=== PATIENT | male | born 1950 | race Caucasian/White ===

== ENCOUNTER 2018-08-27 23:43 | Inpatient (IN) | payer MEDICARE ==
[~2018-08-27] VITALS: Ht 182.9 cm; Wt 84.4 kg
--- NOTE | 2018-08-28 00:03 | PHYS DOC ---
Past Medical History Past Medical History: CAD, Diabetes-Type II Additional Past Medical Histor: neuropathy Additional Past Surgical Histo: pancreas surgery, bilateral fibular had amputations Smoking: Quit Greater Than 1 Year Adult General Chief Complaint Chief Complaint: MECHANICAL FALL HPI HPI Patient is a 68-year-old male who presents to the emergency department for evaluation. He states he awakened from sleep in the middle of the night, and attempted to go to the bathroom but walked into the wrong doorway and fell down about [address] stairs. He was able to crawl back up the stairs, and complains of pain in his left ankle and foot primarily. He also has some mild neck pain and is uncertain if he hit his head. He also has some abrasions on his left flank and some left flank pain. He has not had any loss of consciousness. He has not had any vomiting. He has some superficial abrasions on his legs bilaterally and is uncertain of his last tetanus. There are no alleviating or exacerbating factors to his symptoms, although movement and palpation of the affected area seems to worsen his pain. Review of Systems Review of Systems Constitutional: Denies fever or chills [] Eyes: Denies change in visual acuity, redness, or eye pain [] HENT: Denies nasal congestion or sore throat [] Respiratory: Denies cough or shortness of breath [] Cardiovascular: The patient denies any shortness of breath, chest pain, palpitations, or orthopnea [] GI: Denies abdominal pain, nausea, vomiting, bloody stools or diarrhea [] : Denies dysuria or hematuria [] Musculoskeletal: Denies back pain or joint pain, except as noted in the history of present illness [] Integument: Denies rash or skin lesions [] Neurologic: Denies headache, focal weakness or sensory changes [] Endocrine: Denies polyuria or polydipsia [] All other systems were reviewed and found to be within normal limits, except as documented in this note. Current Medications Current Medications Current Medications Medications (Trade) Dose Ordered Sig/Bassam Start Time Stop Time Status Last Admin Dose Admin Diphtheria/ Tetanus/Acell Pertussis (Boostrix) 0.5 ml ONCE ONCE 08/28/18 00:30 08/28/18 00:31 DC 08/28/18 00:43 0.5 ML Fentanyl Citrate (Fentanyl 2ml Vial) 50 mcg 1X ONCE 08/28/18:30 08/28/18 00:31 DC 08/28/18 00:43 50 MCG Info (CONTRAST GIVEN -- Rx MONITORING) 1 each PRN DAILY PRN 08/28/18 01:15 08/30/18 01:14 Iohexol (Omnipaque 300 Mg/ml) 75 ml 1X ONCE 08/28/18 01:30 08/28/18 01:31 DC 08/28/18 01:57 75 ML Morphine Sulfate (Morphine Sulfate) 4 mg 1X ONCE 08/28/18 03:30 08/28/18 03:31 08/28/18 02:55 4 MG Sodium Chloride 1,000 ml @ 100 mls/hr Q10H 08/28/18 00:30 08/28/18 10:29 08/28/18 00:43 100 MLS/HR Allergies Allergies Allergies Coded Allergies Type Severity Reaction Last Updated Verified No Known Drug Allergies 08/27/18 No Physical Exam Physical Exam PHYSICAL EXAM: CONSTITUTIONAL: Well developed, well nourished HEAD: normocephalic, atraumatic EENT: PERRL, EOMI. Conjunctivae normal color, sclerae non-icteric; moist mucous membranes. NECK: There is mild tenderness to palpation diffusely in the cervical spine. EMS applied cervical collar remains in place. LUNGS: Lungs CTA, breathing even and unlabored. Normal air movement. HEART: Regular rate and rhythm, no murmur CHEST: No deformity; non-tender ABDOMEN: The abdomen is soft, there is mild tenderness to palpation of the left lower abdomen, with a superficial stab abrasion on the left flank. The upper abdomen, including both upper quadrants or nontender. The remainder the abdomen is soft and non-tender, no masses or bruits. There is no rebound, or guarding. EXTREM: There is soft tissue swelling over the lateral malleolus of the left ankle, there is mild tenderness to palpation of the left foot. There are superficial abrasions on the shins bilaterally. There is normal range of motion of the knees and hips bilaterally without any definite focal bony tenderness to palpation of this area. Remainder the extremities are atraumatic. SKIN: No rash; no diaphoresis NEURO: Alert; normal speech and cognition; CN's grossly intact; strength grossly intact without focal deficit. BACK: No CVA TTP.There is no bony tenderness to palpation of the thoracic or lumbar spine. Current Patient Data Vital Signs Vital Signs Date Time Temp Pulse Resp B/P (MAP) Pulse Ox O2 Delivery O2 Flow Rate FiO2 08/27/18 23:58 97.8 82 18 149/85 (106) 97 Room Air 97.8 Lab Values Laboratory Tests Test 08/27/18 23:54 White Blood Count 6.4 x10^3/uL (4.0-11.0) Red Blood Count 4.45 x10^6/uL (4.30-5.70) Hemoglobin 13.2 g/dL (13.0-17.5) Hematocrit 37.9 % (39.0-53.0) L Mean Corpuscular Volume 85 fL (79-100) Mean Corpuscular Hemoglobin 30 pg (25-35) Mean Corpuscular Hemoglobin Concent 35 g/dL (31-37) Red Cell Distribution Width 13.5 % (11.5-14.5) Platelet Count 201 x10^3/uL (140-400) Neutrophils (%) (Auto) 64 % (31-73) Lymphocytes (%) (Auto) 25 % (24-48) Monocytes (%) (Auto) 7 % (0-9) Eosinophils (%) (Auto) 3 % (0-3) Basophils (%) (Auto) 1 % (0-3) Neutrophils # (Auto) 4.1 x10^3uL (1.8-7.7) Lymphocytes # (Auto) 1.6 x10^3/uL (1.0-4.8) Monocytes # (Auto) 0.4 x10^3/uL (0.0-1.1) Eosinophils # (Auto) 0.2 x10^3/uL (0.0-0.7) Basophils # (Auto) 0.0 x10^3/uL (0.0-0.2) Prothrombin Time 13.0 SEC (11.7-14.0) Prothrombin Time INR 1.0 (0.8-1.1) Sodium Level 137 mmol/L (136-145) Potassium Level 4.1 mmol/L (3.5-5.1) Chloride Level 101 mmol/L (98-107) Carbon Dioxide Level 29 mmol/L (21-32) Anion Gap 7 (6-14) Blood Urea Nitrogen 14 mg/dL (8-26) Creatinine 1.1 mg/dL (0.7-1.3) Estimated GFR (Cockcroft-Gault) 66.8 BUN/Creatinine Ratio 13 (6-20) Glucose Level 336 mg/dL (70-99) H Calcium Level 8.9 mg/dL (8.5-10.1) Total Bilirubin 0.3 mg/dL (0.2-1.0) Aspartate Amino Transferase (AST) 21 U/L (15-37) Alanine Aminotransferase (ALT) 29 U/L (16-63) Alkaline Phosphatase 121 U/L (46-116) H Total Protein 6.2 g/dL (6.4-8.2) L Albumin 3.2 g/dL (3.4-5.0) L Albumin/Globulin Ratio 1.1 (1.0-1.7) Lipase 50 U/L (73-393) L Laboratory Tests 08/27/18 23:54 Laboratory Tests 08/27/18 23:54 EKG EKG [Normal sinus rhythm a rate of 80 beats for minute, normal axis, normal intervals. There are no acute ischemic ST/T changes.] Radiology/Procedures Radiology/Procedures [PROCEDURE: CT ABD PELV W/ IV CONTRST ONLY INDICATION: pt fell down stairs; body pain; Omni 300, 75ml COMPARISON: None. TECHNIQUE: Axial CT images obtained through the abdomen and pelvis with contrast. One or more of the following individualized dose reduction techniques were utilized for this examination: 1. Automated exposure control; 2. Adjustment of the mA and/or kV according to patient size; 3. Use of iterative reconstruction technique. FINDINGS: Mild dependent opacity at left greater than right lung base. Severe atherosclerosis. Surgical clips left groin. Mild haziness to a portion the mesenteric fat. The pancreas has a somewhat atrophic appearance with multiple calcifications seen within the uncinate process. No intrahepatic bile duct dilation or perihepatic hemorrhage. No perisplenic hemorrhage. No left-sided hydronephrosis or perirenal hemorrhage. Urinary bladder somewhat distended at time of exam. No right-sided hydronephrosis or perirenal hemorrhage. Duplicated right collecting system and ureters. Moderate amount of stool within the rectal region. Moderate stool seen throughout the remainder of the colon. No periappendiceal inflammation. Small fat-containing umbilical hernia. No dilated loops of bowel to suggest obstruction. Right lateral 10th rib fracture. Anterior spinal fusion changes at L4-S1 with plate within the region. Multilevel degenerative changes spine. This contributes to multilevel central canal and neural foraminal stenosis. IMPRESSION: 1. No definite solid organ or vascular injury. 2. Right 10th rib fracture with an acute appearance. 3. There are some calcifications within the uncinate process of the pancreas. Can be seen with causes such as chronic pancreatitis. 4. The urinary bladder is distended at the time of exam. Would correlate with urinary function.] PROCEDURE: CT HEAD AND CERVICAL SPINE WO INDICATION: PT FELL DOWN STAIRS; HEAD/NECK PAIN COMPARISON: None. TECHNIQUE: Axial CT images obtained through the head and cervical spine without intravenous contrast. Coronal and sagittal reformats processed of cervical spine. One or more of the following individualized dose reduction techniques were utilized for this examination: 1. Automated exposure control; 2. Adjustment of the mA and/or kV according to patient size; 3. Use of iterative reconstruction technique. FINDINGS: Head: No intracranial hemorrhage. No midline shift. Basal cisterns patents. Ventricles and sulci are mildly prominent. Scattered foci of low-attenuation white matter. No acute osseous abnormality. There is some fluid in the maxillary sinuses as well as suspected small frontal scalp hematoma. Cervical: Only C1-C6 is visualized on this exam with C7 outside of the field of view. Multilevel degenerative changes throughout the cervical spine with disc protrusions as well as osteophyte formation, uncovertebral and facet hypertrophy with multilevel central canal and neural foraminal stenosis. A definite acute fracture line is not seen. IMPRESSION: 1. No acute intracranial hemorrhage. 2. Scattered foci of low-attenuation white matter. Nonspecific but can be seen with chronic small vessel ischemic disease. 3. Partial opacification of the maxillary sinuses with small fluid and mucosal thickening. 4. Mild angulation of the right zygomatic arch. A fracture of unknown age is possible given this finding. Would correlate with point tenderness in the region. 5. No definite acute fracture or dislocation of the cervical spine from C1 through C6. C7 and the upper thoracic spine is outside of the field of view. 6. Calcific atherosclerosis. 7. Multilevel degenerative changes with disc protrusions and osteophyte formation as well as uncovertebral and facet hypertrophy with central canal neural foraminal stenosis at multiple levels. PROCEDURE: ANKLE LEFT 3V INDICATION: pain after falling down stairs; ankle pain COMPARISON: None. IMPRESSION: Left ankle: 3 views obtained. Small ossific density adjacent to the medial malleolus. This appears well-corticated therefore could be secondary to an old fracture or ossicle. Ankle joint effusion is identified. Severe calcific atherosclerosis. Anterior to the tibiotalar articulation there is a 2 mm calcific density structure identified. Could be a calcification within the soft tissues or related to degenerative changes with a small loose body in the area but a tiny fracture fragment is not excluded given this finding. Soft tissue swelling overlying the lateral malleolus. There is also suspected ossific density seen adjacent to the lateral aspect of the distal tibia which could be secondary to a small fracture fragment of unknown age. Left foot: 3 views obtained. Lucency at the midpoint of the medial ossicle of the first digit near the metatarsal head. There is some swelling overlying the first metatarsophalangeal joint. The most common cause for this appearance would be bipartite ossicle but given the overlying swelling if the patient has point tenderness a nondisplaced fracture is possible. Ossific density seen adjacent to the navicular but this is most likely secondary to a ossicle given the location. Degenerative changes of the midfoot. Overlap somewhat limits evaluation of midfoot. Multiple lucencies extending through the mid to anterior portion of the calcaneus concerning for mildly displaced comminuted acute appearing fracture. Small ossific density identified adjacent to the cuboid but given the appearance of morphology would favor ossicle. ER physician preliminary L hip x-ray interpretation: No acute fracture or other abnormality. Course & Med Decision Making Course & Med Decision Making Pertinent Labs and Imaging studies reviewed. (See chart for details) [3:15 AM: The patient's condition remained stable. CT does not adequately image his cervical spine and have requested the technologist to obtain additional images. Additionally, given the patient's foot injuries, CT of his foot for better delineation of his calcaneal fracture is warranted. The patient does not think he is be able to bear weight even with the use of crutches. He'll be admitted to the hospital for further evaluation and orthopedic consultation. C- collar will remain in place, and will need to be removed by the hospitalist after additional CT images have been obtained. SPLINT APPLICATION NOTE: Posterior short leg splint was placed by ER nurse, and inspected by me post lifting. PMS intact. Dragon Disclaimer Dragon Disclaimer This electronic medical record was generated, in whole or in part, using a voice recognition dictation system. Departure Departure Impression: Primary Impression: Foot fracture Additional Impressions: Accidental fall Abrasions of multiple sites Rib fracture Disposition: ADMITTED INPATIENT Admitting Physician: Luiz Castorena Condition: STABLE Problem Qualifiers ADRI MCGOVERN MD Aug 28, 2018 00:03
[2018-08-28 00:04] LABS: BASO % 1 % (0-3); EOS # 0.2 x10^3/uL (0.0-0.7); EOS % 3 % (0-3); HEMATOCRIT 37.9 % (39.0-53.0); HEMOGLOBIN 13.2 g/dL (13.0-17.5); LYMPH # 1.6 x10^3/uL (1.0-4.8); LYMPH % 25 % (24-48); MEAN CORPUSCULAR HEMOGLOBIN 30 pg (25-35); MEAN CORPUSCULAR HGB CONC 35 g/dL (31-37); MEAN CORPUSCULAR VOLUME 85 fL (79-100); MONO # 0.4 x10^3/uL (0.0-1.1); MONO % 7 % (0-9); NEUT # 4.1 x10^3uL (1.8-7.7); NEUT % 64 % (31-73); PLATELET COUNT 201 x10^3/uL (140-400); RED BLOOD COUNT 4.45 x10^6/uL (4.30-5.70); RED CELL DISTRIBUTION WIDTH 13.5 % (11.5-14.5); WHITE BLOOD COUNT 6.4 x10^3/uL (4.0-11.0)
[2018-08-28 00:11] LABS: CALCIUM 8.9 mg/dL (8.5-10.1); CREATININE 1.1 mg/dL (0.7-1.3); GFR 66.8; POTASSIUM 4.1 mmol/L (3.5-5.1)
[2018-08-28 00:16] LABS: ALBUMIN 3.2 g/dL (3.4-5.0); ALBUMIN/GLOBULIN RATIO 1.1 (1.0-1.7); TOTAL BILIRUBIN 0.3 mg/dL (0.2-1.0); TOTAL PROTEIN 6.2 g/dL (6.4-8.2)
[2018-08-28] MEDS ORDERED: DIPHTH,PERTUSS(ACELL),TET TOX 0.5 ML DISP.SYRIN. VAX IM ONE (00:30)
[2018-08-28] MEDS ORDERED: IV NORMAL SALINE 1000ML BAG 1,000 ML IV SCH (00:30)
[2018-08-28] MEDS ORDERED: fentaNYL PF VIAL 100 MCG/2 ML VIAL IV ONE (00:30)
[2018-08-28] MEDS ORDERED: CONTRAST GIVEN. MC PRN (01:15)
[2018-08-28] MEDS ORDERED: IOHEXOL 300 MG/ML 100ML VIAL. IV ONE (01:30)
--- NOTE | 2018-08-28 02:19 | RAD ---
INDICATION: pt fell down stairs; body pain; Omni 300, 75ml COMPARISON: None. TECHNIQUE: Axial CT images obtained through the abdomen and pelvis with contrast. One or more of the following individualized dose reduction techniques were utilized for this examination: 1. Automated exposure control; 2. Adjustment of the mA and/or kV according to patient size; 3. Use of iterative reconstruction technique. FINDINGS: Mild dependent opacity at left greater than right lung base. Severe atherosclerosis. Surgical clips left groin. Mild haziness to a portion the mesenteric fat. The pancreas has a somewhat atrophic appearance with multiple calcifications seen within the uncinate process. No intrahepatic bile duct dilation or perihepatic hemorrhage. No perisplenic hemorrhage. No left-sided hydronephrosis or perirenal hemorrhage. Urinary bladder somewhat distended at time of exam. No right-sided hydronephrosis or perirenal hemorrhage. Duplicated right collecting system and ureters. Moderate amount of stool within the rectal region. Moderate stool seen throughout the remainder of the colon. No periappendiceal inflammation. Small fat-containing umbilical hernia. No dilated loops of bowel to suggest obstruction. Right lateral 10th rib fracture. Anterior spinal fusion changes at L4-S1 with plate within the region. Multilevel degenerative changes spine. This contributes to multilevel central canal and neural foraminal stenosis. IMPRESSION: 1. No definite solid organ or vascular injury. 2. Right 10th rib fracture with an acute appearance. 3. There are some calcifications within the uncinate process of the pancreas. Can be seen with causes such as chronic pancreatitis. 4. The urinary bladder is distended at the time of exam. Would correlate with urinary function. Electronically signed by: Jamie Ortega MD (08/28/2018 2:15 AM) [id number]
--- NOTE | 2018-08-28 02:30 | RAD ---
INDICATION: PT FELL DOWN STAIRS; HEAD/NECK PAIN COMPARISON: None. TECHNIQUE: Axial CT images obtained through the head and cervical spine without intravenous contrast. Coronal and sagittal reformats processed of cervical spine. One or more of the following individualized dose reduction techniques were utilized for this examination: 1. Automated exposure control; 2. Adjustment of the mA and/or kV according to patient size; 3. Use of iterative reconstruction technique. FINDINGS: Head: No intracranial hemorrhage. No midline shift. Basal cisterns patents. Ventricles and sulci are mildly prominent. Scattered foci of low-attenuation white matter. No acute osseous abnormality. There is some fluid in the maxillary sinuses as well as suspected small frontal scalp hematoma. Cervical: Only C1-C6 is visualized on this exam with C7 outside of the field of view. Multilevel degenerative changes throughout the cervical spine with disc protrusions as well as osteophyte formation, uncovertebral and facet hypertrophy with multilevel central canal and neural foraminal stenosis. A definite acute fracture line is not seen. IMPRESSION: 1. No acute intracranial hemorrhage. 2. Scattered foci of low-attenuation white matter. Nonspecific but can be seen with chronic small vessel ischemic disease. 3. Partial opacification of the maxillary sinuses with small fluid and mucosal thickening. 4. Mild angulation of the right zygomatic arch. A fracture of unknown age is possible given this finding. Would correlate with point tenderness in the region. 5. No definite acute fracture or dislocation of the cervical spine from C1 through C6. C7 and the upper thoracic spine is outside of the field of view. 6. Calcific atherosclerosis. 7. Multilevel degenerative changes with disc protrusions and osteophyte formation as well as uncovertebral and facet hypertrophy with central canal neural foraminal stenosis at multiple levels. Electronically signed by: Jamie Ortega MD (08/28/2018 2:27 AM) [facility]
--- NOTE | 2018-08-28 02:38 | RAD ---
INDICATION: pain after falling down stairs; ankle pain COMPARISON: None. IMPRESSION: Left ankle: 3 views obtained. Small ossific density adjacent to the medial malleolus. This appears well-corticated therefore could be secondary to an old fracture or ossicle. Ankle joint effusion is identified. Severe calcific atherosclerosis. Anterior to the tibiotalar articulation there is a 2 mm calcific density structure identified. Could be a calcification within the soft tissues or related to degenerative changes with a small loose body in the area but a tiny fracture fragment is not excluded given this finding. Soft tissue swelling overlying the lateral malleolus. There is also suspected ossific density seen adjacent to the lateral aspect of the distal tibia which could be secondary to a small fracture fragment of unknown age. Left foot: 3 views obtained. Lucency at the midpoint of the medial ossicle of the first digit near the metatarsal head. There is some swelling overlying the first metatarsophalangeal joint. The most common cause for this appearance would be bipartite ossicle but given the overlying swelling if the patient has point tenderness a nondisplaced fracture is possible. Ossific density seen adjacent to the navicular but this is most likely secondary to a ossicle given the location. Degenerative changes of the midfoot. Overlap somewhat limits evaluation of midfoot. Multiple lucencies extending through the mid to anterior portion of the calcaneus concerning for mildly displaced comminuted acute appearing fracture. Small ossific density identified adjacent to the cuboid but given the appearance of morphology would favor ossicle. Electronically signed by: Jamie Ortega MD (08/28/2018 2:35 AM) [id number]
[2018-08-28] MEDS ORDERED: ONDANSETRON PF 4 MG/2 ML VIAL. IV PRN (03:30)
[2018-08-28] MEDS ORDERED: MORPHINE SULFATE 4 MG/ML VIAL. IV ONE (03:30)
[2018-08-28 04:05] VITALS: BP 161/88
[2018-08-28] MEDS: MORPHINE SULFATE 4 MG/ML VIAL. IV PRN ×6 (04:42→21:13)
--- NOTE | 2018-08-28 05:23 | RAD ---
INDICATION: fx foot COMPARISON: Plain film from earlier same day TECHNIQUE: Axial CT images obtained through the left foot without contrast. One or more of the following individualized dose reduction techniques were utilized for this examination: 1. Automated exposure control; 2. Adjustment of the mA and/or kV according to patient size; 3. Use of iterative reconstruction technique. FINDINGS: Comminuted and displaced fracture is again identified of the calcaneus which does extend intra-articularly including to the subtalar joint. Severe calcific atherosclerosis. Osseous fragments are again seen adjacent to the tibiotalar joint medially. These appear well-corticated therefore its possible that these are secondary to old fracture or degenerative changes. Osseous excrescence off of the distal aspect of the fibula. Induration of the fat with edema and suspected blood within the soft tissues. This involves both the foot and ankle. Ossific density adjacent to the navicular likely ossicle. Probable ossicle adjacent to the cuboid. There are some degenerative changes the midfoot with osteophyte formation. Hypertrophic changes with osseous excrescence off of the medial cuneiform. Linear lucency seen at medial cuneiform distally there is some deformity of the middle cuneiform as well as the adjacent base of the second and third metatarsals. There is also osseous excrescences off the middle and lateral cuneiform plantar aspect. Lucency through the sesamoid at the first metatarsophalangeal joint again seen. Could be bipartite with fracture not excluded. IMPRESSION: 1. Comminuted and displaced acute left calcaneal fracture is identified. Adjacent blood and edema in the soft tissues. 2. Deformity is identified within the midfoot involving the base of the second metatarsal and the adjacent middle cuneiform which appears mildly dorsally displaced in relation to the adjacent metatarsal. This could be secondary to an old injury to the region given this appearance but would correlate with point tenderness within the region to ensure that there is not an acute cause. There is also some hypertrophic changes within the region which suggests a chronic finding but if there is acute pain in the region superimposed acute etiology is not excluded. Electronically signed by: Jamie Ortega MD (08/28/2018 5:20 AM) [id number]
[2018-08-28] MEDS ORDERED: DEXTROSE 50% 25 GM / 50ML DISP.SYRIN. IV PRN ×2 (06:15→17:00)
[2018-08-28 07:00] VITALS: BP 128/75
--- NOTE | 2018-08-28 07:15 | EKG ---
[facility] [address] [place] [id number] Test Date: 2018-08-28 Test Time: 00:10:00 Pat Name: SERA KATE Department: Room: [facility] Gender: M Insurance Investigator: : [id number] Requested By: ADRI MCGOVERN Order Number: [id number] Reading MD: Sotero Nguyen MD Measurements Intervals [place] Rate: 80 P: 72 SC: 182 QRS: 46 QRSD: 90 T: 76 QT: 368 QTc: 428 Interpretive Statements SINUS RHYTHM Electronically Signed On 08-31-2018 11:19:00 CDT by Sotero Nguyen MD
--- NOTE | 2018-08-28 08:06 | RAD ---
Right foot, 3 views, 08/28/2018: HISTORY: Fall, foot pain There has been previous amputation of the distal aspect of the great toe at the IP joint level. A small old appearing bony fragment is present along the medial aspect of the distal end of the proximal phalanx of the great toe. There are mild scattered degenerative changes. Subluxation of the distal phalanx of the second toe is likely chronic. There is deformity of the middle phalanx of the third toe which may be developmental. No acute fracture is identified. Arterial calcifications are present. IMPRESSION: 1. Previous amputation of the distal aspect of the great toe. 2. Mild subluxation at the DIP joint of the second toe which is probably chronic. 3. Mild scattered degenerative changes 4. No acute bony abnormality is detected. Right ankle, 3 views, 08/28/2018: No fracture or dislocation is identified. IMPRESSION: No acute right ankle abnormality is detected. Electronically signed by: Joseph Lira MD (08/28/2018 8:03 AM) [facility]
[2018-08-28 11:00] VITALS: BP 126/76
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
[2018-08-28] MEDS ORDERED: DOXY100C2 PO (11:36)
[2018-08-28] MEDS ORDERED: FINA5TAB4 PO (11:36)
[2018-08-28] MEDS ORDERED: ASPI-630 PO (11:36)
[2018-08-28] MEDS ORDERED: RANI150C PO (11:36)
[2018-08-28] MEDS ORDERED: MINE120C TP (11:36)
[2018-08-28] MEDS ORDERED: FLUT16SP NS (11:36)
[2018-08-28] MEDS ORDERED: TRAM-48 PO (11:36)
[2018-08-28] MEDS ORDERED: PSYL0.5215 PO (11:36)
[2018-08-28] MEDS ORDERED: METO10TA81 PO (11:36)
[2018-08-28] MEDS ORDERED: LIPA1CAP4 PO ×2 (11:36)
[2018-08-28] MEDS ORDERED: MECL12.52 PO (11:36)
[2018-08-28] MEDS ORDERED: DULO60CA6 PO (11:36)
[2018-08-28] MEDS ORDERED: LISI10TA2 PO (11:36)
[2018-08-28] MEDS ORDERED: CRESTOR5 MG PO (11:36)
[2018-08-28] MEDS ORDERED: TIZA4TAB PO (11:36)
[2018-08-28] MEDS ORDERED: SENN8.6T99 PO (11:36)
[2018-08-28] MEDS ORDERED: TEMA30CA PO (11:36)
[2018-08-28] MEDS ORDERED: CHOL200074 PO (11:36)
[2018-08-28] MEDS ORDERED: MECLIZINE HCL 12.5 MG TABLET. PO PRN (12:15)
[2018-08-28] MEDS: METOCLOPRAMIDE 10 MG TABLET. PO SCH ×2 (12:30→17:00)
[2018-08-28] MEDS ORDERED: LIPASE/PROTEAS/AMYLAS 10/32/42 CAPSULE.DR. PO SCH (12:30)
--- NOTE | 2018-08-28 13:35 | PDOC1 ---
History and Physical Date of Admission Date of Admission DATE: 08/28/18 TIME: 13:32 Identification/Chief Complaint Chief Complaint fall History of Present Illness History of Present Illness pt is a 68 y.o m with hx of htn, peripheral neuropathy who presents with a fall and the patient states that he slipped and fell downt he stairs. he sustaiend a left calcaneal fracture sas well rib fx the patient complains of hcest pain. he continues to have difficulty with ambulating with his current deficits. he wilma any fever or chills. he denies any presyncope symptoms. he denies any other cough or congestion. no nausea or vomiting. sx are severe ongoing no radiation no allevaiion or aggravation. he is in a c collar but denies neck pain. Social History Smoke: Quit Current Problem List Problem List Problems Medical Problems: (1) Abrasions of multiple sites Status: Acute (2) Accidental fall Status: Acute (3) Foot fracture Status: Acute (4) Rib fracture Status: Acute Current Medications Current Medications Current Medications Sodium Chloride 1,000 ml @ 100 mls/hr Q10H IV Last administered on 08/28/18at 00:43; Start 08/28/18 at 00:30; Stop 08/28/18 at 10:29; Status DC Diphtheria/ Tetanus/Acell Pertussis (Boostrix) 0.5 ml ONCE ONCE VAX IM Last administered on 08/28/18at 00:43; Start 08/28/18 at 00:30; Stop 08/28/18 at 00 :31; Status DC Fentanyl Citrate (Fentanyl 2ml Vial) 50 mcg 1X ONCE IV Last administered on at 00:43; Start 08/28/18 at 00:30; Stop 08/28/18 at 00:31; Status DC Iohexol (Omnipaque 300 Mg/ml) 75 ml 1X ONCE IV Last administered on at 01:57; Start 08/28/18 at 01:30; Stop 08/28/18 at 01:31; Status DC Info (CONTRAST GIVEN -- Rx MONITORING) 1 each PRN DAILY PRN MC SEE COMMENTS; Start 08/28/18 at 01:15; Stop 08/30/18 at 01:14 Morphine Sulfate (Morphine Sulfate) 4 mg 1X ONCE IV Last administered on 08/28at 02:55; Start 08/28/18 at 03:30; Stop 08/28/18 at 03:31; Status DC Ondansetron HCl (Zofran) 4 mg PRN Q8HRS PRN IV NAUSEA/VOMITING 1st choice Last administered on 08/28/18at 04:41; Start 08/28/18 at 03:30; Stop 08/29/18 at 03 :29 Morphine Sulfate (Morphine Sulfate) 4 mg PRN Q2HR PRN IV SEVERE PAIN Last administered on 08/28/18at 10:25; Start 08/28/18 at 03:30; Stop 08/29/18 at 03 :29 Dextrose (Dextrose 50%-Water Syringe) 12.5 gm PRN Q15MIN PRN IV SEE COMMENTS; Start 08/28/18 at 06:15 Aspirin (Ecotrin) 325 mg DAILY PO ; Start 08/28/18 at 12:00 Aspirin (Children'S Aspirin) 81 mg DAILY PO ; Start 08/29/18 at 09:00; Status UNV Finasteride (Proscar) 5 mg DAILY PO ; Start 08/28/18 at 12:30 Fluticasone Propionate (Flonase) 2 spray HS NS ; Start 08/28/18 at 21:00 Lisinopril (Prinivil) 10 mg DAILY PO ; Start 08/28/18 at 12:30 Metoclopramide HCl (Reglan) 5 mg TIDWMEALS PO ; Start 08/28/18 at 12:30 Temazepam (Restoril) 30 mg QHS PO ; Start 08/28/18 at 21:00 Vitamin D (Vitamin D3) 1,000 unit DAILY PO ; Start 08/28/18 at 12:30 Non-Formulary Medication (Doxycycline Hyclate ) 1 cap BID PO ; Start 08/28/18 at 21:00; Status UNV Duloxetine HCl (Cymbalta) 120 mg DAILY PO ; Start 08/28/18 at 12:30 Amylase/Lipase/ Protease (Zenpep 10,000) 1 cap DAILYWLUN PO ; Start 08/28/18 at 12:30 Amylase/Lipase/ Protease (Zenpep 10,000) 2 cap BIDWMEALS PO ; Start 08/28/18 at 17:00 Meclizine HCl (Antivert) 12.5 mg PRN BID PRN PO DIZZINESS; Start 08/28/18 at 12:15 Psyllium Hydrophilic Mucilloid (Metamucil Fiber Packet) 1 pkt DAILY PO ; Start 08/28/18 at 12:30 Famotidine (Pepcid) 20 mg BID PO ; Start 08/28/18 at 21:00 Atorvastatin Calcium (Lipitor) 10 mg QHS PO ; Start 08/28/18 at 21:00 Sennosides (Senna) 8.6 mg DAILY PO ; Start 08/28/18 at 12:30 Tizanidine HCl (Zanaflex) 2 mg BID PO ; Start 08/28/18 at 12:30 Active Scripts Active Reported Tizanidine Hcl 4 Mg Tablet 0.5 Tab PO BID Metamucil (Psyllium Husk) 0.52 Gm Capsule 0.52 Gm PO DAILY Eucerin Creme (Mineral Oil/White Petrolatum) 120 Gm Cream..g. 1 [place] TP PRN BID PRN Vitamin D-3 (Cholecalciferol (Vitamin D3)) 2,000 Unit Capsule 1,000 Unit PO DAILY Ultram (Tramadol Hcl) 50 Mg Tablet 50 Mg PO PRN BID PRN Senokot (Sennosides) 8.6 Mg Tablet 1 Tab PO DAILY Crestor (Rosuvastatin Calcium) 5 Mg Tablet 1 Tab PO QODAY Ranitidine Hcl 150 Mg Capsule 1 Cap PO BID Reglan (Metoclopramide Hcl) 10 Mg Tablet 0.5 Tab PO TIDWMEALS Meclizine Hcl 12.5 Mg Tablet 1 Tab PO PRN BID PRN Lisinopril 10 Mg Tablet 1 Tab PO DAILY Fluticasone Propionate Nasal [place] (Fluticasone Propionate) 16 Gm [place].susp 2 [place] NS HS Finasteride 5 Mg Tablet 1 Tab PO DAILY Cymbalta (Duloxetine Hcl) 60 Mg Capsule.dr 2 Cap PO HS Doxycycline Hyclate 100 Mg Capsule 1 Cap PO BID [place] 12,000 Units Capsule (Lipase/Protease/Amylase) 1 Each Capsule.dr 1 Each PO DAILYWLUN Creon Dr 12,000 Units Capsule (Lipase/Protease/Amylase) 1 Each Capsule.dr 2 Each PO BIDWMEALS Aspirin 81 Mg Tab.chew 1 Tab PO DAILY Allergies Allergies: Coded Allergies: metformin (Verified Allergy, Intermediate, 08/28/18) prazosin (Verified Allergy, Intermediate, 08/28/18) pregabalin (Verified Allergy, Intermediate, 08/28/18) ROS Review of System CONSTITUTIONAL: No fever or chills EYES: No recent changes SKIN: No rash or itching CARDIOVASCULAR: No chest pain, syncope, palpitations, or edema RESPIRATORY: No SOB or cough GASTROINTESTINAL: No nausea, vomiting or abdominal pain NEUROLOGICAL: No headaches or weakness ENDOCRINE: No cold or heat intolerance GENITOURINARY: No urgency or frequency of urination LYMPHATICS: No enlarged lymph nodes PSYCHIATRIC: No anxiety or depression Physical Exam Physical Exam GENERAL: No apparent distress. Alert and oriented. HEENT: Head normocephalic, atraumatic. NECK: Supple LUNGS: Clear to auscultation. HEART: RRR, S1, S2 present, pulses intact ABDOMEN: Soft, positive bowel sounds. EXTREMITIES: No cyanosis or edema. NEUROLOGIC: Normal speech, normal tone PSYCHIATRIC: Normal affect, normal mood. SKIN: No ulceration. he is in a c collar he has left leg dressed Vitals Vitals Vital Signs Date Time Temp Pulse Resp B/P (MAP) Pulse Ox O2 Delivery O2 Flow Rate FiO2 08/28/18 11:00 98.0 78 16 126/76 (93) 90 Room Air 98.0 Labs Labs Laboratory Tests Test 08/27/18 23:54 08/28/18 07:42 08/28/18 11:11 White Blood Count 6.4 x10^3/uL (4.0-11.0) Red Blood Count 4.45 x10^6/uL (4.30-5.70) Hemoglobin 13.2 g/dL (13.0-17.5) Hematocrit 37.9 % (39.0-53.0) Mean Corpuscular Volume 85 fL (79-100) Mean Corpuscular Hemoglobin 30 pg (25-35) Mean Corpuscular Hemoglobin Concent 35 g/dL (31-37) Red Cell Distribution Width 13.5 % (11.5-14.5) Platelet Count 201 x10^3/uL (140-400) Neutrophils (%) (Auto) 64 % (31-73) Lymphocytes (%) (Auto) 25 % (24-48) Monocytes (%) (Auto) 7 % (0-9) Eosinophils (%) (Auto) 3 % (0-3) Basophils (%) (Auto) 1 % (0-3) Neutrophils # (Auto) 4.1 x10^3uL (1.8-7.7) Lymphocytes # (Auto) 1.6 x10^3/uL (1.0-4.8) Monocytes # (Auto) 0.4 x10^3/uL (0.0-1.1) Eosinophils # (Auto) 0.2 x10^3/uL (0.0-0.7) Basophils # (Auto) 0.0 x10^3/uL (0.0-0.2) Prothrombin Time 13.0 SEC (11.7-14.0) Prothromb Time International Ratio 1.0 (0.8-1.1) Sodium Level 137 mmol/L (136-145) Potassium Level 4.1 mmol/L (3.5-5.1) Chloride Level 101 mmol/L (98-107) Carbon Dioxide Level 29 mmol/L (21-32) Anion Gap 7 (6-14) Blood Urea Nitrogen 14 mg/dL (8-26) Creatinine 1.1 mg/dL (0.7-1.3) Estimated GFR (Cockcroft-Gault) 66.8 BUN/Creatinine Ratio 13 (6-20) Glucose Level 336 mg/dL (70-99) Calcium Level 8.9 mg/dL (8.5-10.1) Total Bilirubin 0.3 mg/dL (0.2-1.0) Aspartate Amino Transf (AST/SGOT) 21 U/L (15-37) Alanine Aminotransferase (ALT/SGPT) 29 U/L (16-63) Alkaline Phosphatase 121 U/L (46-116) Total Protein 6.2 g/dL (6.4-8.2) Albumin 3.2 g/dL (3.4-5.0) Albumin/Globulin Ratio 1.1 (1.0-1.7) Lipase 50 U/L (73-393) Glucose (Fingerstick) 195 mg/dL (70-99) 152 mg/dL (70-99) Laboratory Tests Test 08/27/18 23:54 08/28/18 07:42 08/28/18 11:11 White Blood Count 6.4 x10^3/uL (4.0-11.0) Red Blood Count 4.45 x10^6/uL (4.30-5.70) Hemoglobin 13.2 g/dL (13.0-17.5) Hematocrit 37.9 % (39.0-53.0) Mean Corpuscular Volume 85 fL (79-100) Mean Corpuscular Hemoglobin 30 pg (25-35) Mean Corpuscular Hemoglobin Concent 35 g/dL (31-37) Red Cell Distribution Width 13.5 % (11.5-14.5) Platelet Count 201 x10^3/uL (140-400) Neutrophils (%) (Auto) 64 % (31-73) Lymphocytes (%) (Auto) 25 % (24-48) Monocytes (%) (Auto) 7 % (0-9) Eosinophils (%) (Auto) 3 % (0-3) Basophils (%) (Auto) 1 % (0-3) Neutrophils # (Auto) 4.1 x10^3uL (1.8-7.7) Lymphocytes # (Auto) 1.6 x10^3/uL (1.0-4.8) Monocytes # (Auto) 0.4 x10^3/uL (0.0-1.1) Eosinophils # (Auto) 0.2 x10^3/uL (0.0-0.7) Basophils # (Auto) 0.0 x10^3/uL (0.0-0.2) Prothrombin Time 13.0 SEC (11.7-14.0) Prothromb Time International Ratio 1.0 (0.8-1.1) Sodium Level 137 mmol/L (136-145) Potassium Level 4.1 mmol/L (3.5-5.1) Chloride Level 101 mmol/L (98-107) Carbon Dioxide Level 29 mmol/L (21-32) Anion Gap 7 (6-14) Blood Urea Nitrogen 14 mg/dL (8-26) Creatinine 1.1 mg/dL (0.7-1.3) Estimated GFR (Cockcroft-Gault) 66.8 BUN/Creatinine Ratio 13 (6-20) Glucose Level 336 mg/dL (70-99) Calcium Level 8.9 mg/dL (8.5-10.1) Total Bilirubin 0.3 mg/dL (0.2-1.0) Aspartate Amino Transf (AST/SGOT) 21 U/L (15-37) Alanine Aminotransferase (ALT/SGPT) 29 U/L (16-63) Alkaline Phosphatase 121 U/L (46-116) Total Protein 6.2 g/dL (6.4-8.2) Albumin 3.2 g/dL (3.4-5.0) Albumin/Globulin Ratio 1.1 (1.0-1.7) Lipase 50 U/L (73-393) Glucose (Fingerstick) 195 mg/dL (70-99) 152 mg/dL (70-99) VTE Prophylaxis Ordered VTE Prophylaxis Devices: No VTE Pharmacological Prophylaxi: Yes Assessment/Plan Assessment/Plan #L calcaneal fracture #10th rib fracutre #HTN #HLD #bph Plan - stop ivf - pt/ot - cam boot on left leg - encourage po MARY HO MD Aug 28, 2018 13:35
[2018-08-28] MEDS ORDERED: ENOXAPARIN 40 MG/0.4 ML SYRINGE. SQ SCH (14:00)
[2018-08-28 15:00] VITALS: BP 118/72
[2018-08-28] MEDS: FINASTERIDE 5 MG TABLET. PO SCH (15:20)
[2018-08-28] MEDS: ASPIRIN ENTERIC COATED 325 MG TABLET.DR. PO SCH (15:20)
[2018-08-28] MEDS: SENNOSIDES 8.6 MG TABLET PO SCH (15:20)
[2018-08-28] MEDS: CHOLECALCIFEROL (VITAMIN D3) 1,000 UNIT TABLET PO SCH (15:20)
[2018-08-28] MEDS: DULoxetine HCL 30 MG CAPSULE.DR PO SCH (15:20)
[2018-08-28] MEDS: tiZANidine 4 MG TABLET. PO SCH ×2 (15:20→21:00)
[2018-08-28] MEDS: PSYLLIUM HUSK (SUGAR FREE) 1 PKT PACKET PO SCH (15:21)
[2018-08-28] MEDS: LISINOPRIL 10 MG TABLET PO SCH (15:22)
[2018-08-28] MEDS: LIPASE/PROTEAS/AMYLAS 10/32/42 CAPSULE.DR. PO SCH (16:37)
[2018-08-28] MEDS: INSULIN LISPRO 300 UNITS/3 ML INSULN.PEN. SQ SCH (17:48)
[2018-08-28 19:00] VITALS: BP 134/75
[2018-08-28] MEDS ORDERED: NON FORMULARY ITEM (Doxycycline Hyclate 1 CAP) PO SCH (21:00)
[2018-08-28] MEDS ORDERED: ATORVASTATIN CALCIUM 10 MG TABLET. PO SCH (21:00)
[2018-08-28] MEDS ORDERED: TEMAZEPAM 15 MG CAPSULE PO SCH (21:00)
[2018-08-28] MEDS ORDERED: FLUTICASONE 50MCG/NASAL SPRAY 16GM BOTTLE. NS SCH (21:00)
[2018-08-28] MEDS: FAMOTIDINE 20 MG TABLET. PO SCH (21:12)
[2018-08-28 23:00] VITALS: BP 144/82
[2018-08-29] MEDS: MORPHINE SULFATE 4 MG/ML VIAL. IV PRN (01:13)
[2018-08-29 03:00] VITALS: BP 114/61
[2018-08-29] MEDS ORDERED: MORPHINE SULFATE 4 MG/ML VIAL. IV PRN (04:45)
[2018-08-29] MEDS ORDERED: oxyCODONE/APAP 10/325 1 TAB TABLET PO PRN (04:45)
[2018-08-29 07:00] VITALS: BP 127/68
[2018-08-29] MEDS: tiZANidine 4 MG TABLET. PO SCH (07:26)
[2018-08-29] MEDS: INSULIN LISPRO 300 UNITS/3 ML INSULN.PEN. SQ SCH (08:00)
[2018-08-29] MEDS: METOCLOPRAMIDE 10 MG TABLET. PO SCH (08:00)
[2018-08-29] MEDS: LIPASE/PROTEAS/AMYLAS 10/32/42 CAPSULE.DR. PO SCH (08:00)
[2018-08-29] MEDS ORDERED: INSULIN GLARGINE 300 UNITS/3 ML INSULN.PEN. SQ SCH (08:00)
[2018-08-29] MEDS: ASPIRIN ENTERIC COATED 325 MG TABLET.DR. PO SCH (09:00)
[2018-08-29] MEDS ORDERED: ASPIRIN CHEWABLE 81 MG TABLET. PO SCH (09:00)
[2018-08-29] MEDS: FINASTERIDE 5 MG TABLET. PO SCH (09:00)
[2018-08-29] MEDS: PSYLLIUM HUSK (SUGAR FREE) 1 PKT PACKET PO SCH (09:00)
[2018-08-29] MEDS: DULoxetine HCL 30 MG CAPSULE.DR PO SCH (09:00)
[2018-08-29] MEDS: SENNOSIDES 8.6 MG TABLET PO SCH (09:00)
[2018-08-29] MEDS: FAMOTIDINE 20 MG TABLET. PO SCH (09:00)
[2018-08-29] MEDS: CHOLECALCIFEROL (VITAMIN D3) 1,000 UNIT TABLET PO SCH (09:00)
[2018-08-29] MEDS: LISINOPRIL 10 MG TABLET PO SCH (09:00)
--- NOTE | 2018-08-29 14:13 | PDOC ---
PROGRESS NOTES Chief Complaint Chief Complaint Left calcaneal fx 2/2 to fall Rib fx H/o HTN H/o HLD H/o BPH History of Present Illness History of Present Illness Pt seen and examined while sitting upright in bed w/boot on left foot Pt stated that he would like to be discharged alejandra Discussed w/RN Vitals Vitals Vital Signs Date Time Temp Pulse Resp B/P (MAP) Pulse Ox O2 Delivery O2 Flow Rate FiO2 08/29/18 09:51 94 Room Air 08/29/18 07:00 98.3 83 18 127/68 (87) 98.3 Physical Exam Physical Exam Neck: Supple, no JVD General: Alert, Cooperative, No acute distress Heart: Regular rate, No murmurs Lungs: Clear Abdomen: Soft, Other (tenderness to the left 10th rib area and posterior flank. Minor abrasions at worst on the posterior thorax.) Extremities: No cyanosis, No edema Skin: No rashes, No breakdown Labs LABS Laboratory Tests Test 08/28/18 16:31 08/28/18 20:58 08/29/18 07:14 Glucose (Fingerstick) 154 mg/dL (70-99) 222 mg/dL (70-99) 267 mg/dL (70-99) Review of Systems Review of Systems Pt was slightly agitated and stated he wanted to be discharged alejandra Denies chest pain, SOB Assessment and Plan Assessmemt and Plan Problems Medical Problems: (1) Abrasions of multiple sites Status: Acute (2) Accidental fall Status: Acute (3) Foot fracture Status: Acute (4) Rib fracture Status: Acute Assessment: Left calcaneal fx 2/2 to fall Rib fx H/o HTN H/o HLD H/o BPH Plan: Ready for d/c Outpatient PT at [facility] F/u w/ortho as outpatient L leg cam boot/non-weightbearing x 6 wks per ortho Comment Review of Relevant I have reviewed the following items omar (where applicable) has been applied. Labs Laboratory Tests Test 08/27/18 23:54 08/28/18 07:42 08/28/18 11:11 08/28/18 16:31 White Blood Count 6.4 x10^3/uL (4.0-11.0) Red Blood Count 4.45 x10^6/uL (4.30-5.70) Hemoglobin 13.2 g/dL (13.0-17.5) Hematocrit 37.9 % (39.0-53.0) Mean Corpuscular Volume 85 fL (79-100) Mean Corpuscular Hemoglobin 30 pg (25-35) Mean Corpuscular Hemoglobin Concent 35 g/dL (31-37) Red Cell Distribution Width 13.5 % (11.5-14.5) Platelet Count 201 x10^3/uL (140-400) Neutrophils (%) (Auto) 64 % (31-73) Lymphocytes (%) (Auto) 25 % (24-48) Monocytes (%) (Auto) 7 % (0-9) Eosinophils (%) (Auto) 3 % (0-3) Basophils (%) (Auto) 1 % (0-3) Neutrophils # (Auto) 4.1 x10^3uL (1.8-7.7) Lymphocytes # (Auto) 1.6 x10^3/uL (1.0-4.8) Monocytes # (Auto) 0.4 x10^3/uL (0.0-1.1) Eosinophils # (Auto) 0.2 x10^3/uL (0.0-0.7) Basophils # (Auto) 0.0 x10^3/uL (0.0-0.2) Prothrombin Time 13.0 SEC (11.7-14.0) Prothromb Time International Ratio 1.0 (0.8-1.1) Sodium Level 137 mmol/L (136-145) Potassium Level 4.1 mmol/L (3.5-5.1) Chloride Level 101 mmol/L (98-107) Carbon Dioxide Level 29 mmol/L (21-32) Anion Gap 7 (6-14) Blood Urea Nitrogen 14 mg/dL (8-26) Creatinine 1.1 mg/dL (0.7-1.3) Estimated GFR (Cockcroft-Gault) 66.8 BUN/Creatinine Ratio 13 (6-20) Glucose Level 336 mg/dL (70-99) Calcium Level 8.9 mg/dL (8.5-10.1) Total Bilirubin 0.3 mg/dL (0.2-1.0) Aspartate Amino Transf (AST/SGOT) 21 U/L (15-37) Alanine Aminotransferase (ALT/SGPT) 29 U/L (16-63) Alkaline Phosphatase 121 U/L (46-116) Total Protein 6.2 g/dL (6.4-8.2) Albumin 3.2 g/dL (3.4-5.0) Albumin/Globulin Ratio 1.1 (1.0-1.7) Lipase 50 U/L (73-393) Glucose (Fingerstick) 195 mg/dL (70-99) 152 mg/dL (70-99) 154 mg/dL (70-99) Test 08/28/18 20:58 08/29/18 07:14 Glucose (Fingerstick) 222 mg/dL (70-99) 267 mg/dL (70-99) Laboratory Tests Test 08/28/18 16:31 08/28/18 20:58 08/29/18 07:14 Glucose (Fingerstick) 154 mg/dL (70-99) 222 mg/dL (70-99) 267 mg/dL (70-99) Medications Current Medications Sodium Chloride 1,000 ml @ 100 mls/hr Q10H IV Last administered on 08/28/18at 00:43; Start 08/28/18 at 00:30; Stop 08/28/18 at 10:29; Status DC Diphtheria/ Tetanus/Acell Pertussis (Boostrix) 0.5 ml ONCE ONCE VAX IM Last administered on 08/28/18at 00:43; Start 08/28/18 at 00:30; Stop 08/28/18 at 00 :31; Status DC Fentanyl Citrate (Fentanyl 2ml Vial) 50 mcg 1X ONCE IV Last administered on at 00:43; Start 08/28/18 at 00:30; Stop 08/28/18 at 00:31; Status DC Iohexol (Omnipaque 300 Mg/ml) 75 ml 1X ONCE IV Last administered on at 01:57; Start 08/28/18 at 01:30; Stop 08/28/18 at 01:31; Status DC Info (CONTRAST GIVEN -- Rx MONITORING) 1 each PRN DAILY PRN MC SEE COMMENTS; Start 08/28/18 at 01:15; Stop 08/29/18 at 13:11; Status DC Morphine Sulfate (Morphine Sulfate) 4 mg 1X ONCE IV Last administered on 08/28at 02:55; Start 08/28/18 at 03:30; Stop 08/28/18 at 03:31; Status DC Ondansetron HCl (Zofran) 4 mg PRN Q8HRS PRN IV NAUSEA/VOMITING 1st choice Last administered on 08/28/18at 04:41; Start 08/28/18 at 03:30; Stop 08/29/18 at 03 :29; Status DC Morphine Sulfate (Morphine Sulfate) 4 mg PRN Q2HR PRN IV SEVERE PAIN Last administered on 08/29/18at 01:13; Start 08/28/18 at 03:30; Stop 08/29/18 at 03 :29; Status DC Dextrose (Dextrose 50%-Water Syringe) 12.5 gm PRN Q15MIN PRN IV SEE COMMENTS; Start 08/28/18 at 06:15; Stop 08/28/18 at 17:06; Status DC Aspirin (Ecotrin) 325 mg DAILY PO Last administered on 08/28/18at 15:20; Start 08/28/18 at 12:00; Stop 08/29/18 at 13:11; Status DC Aspirin (Children'S Aspirin) 81 mg DAILY PO ; Start 08/29/18 at 09:00; Status UNV Finasteride (Proscar) 5 mg DAILY PO Last administered on 08/28/18at 15:20; Start 08/28/18 at 12:30; Stop 08/29/18 at 13:11; Status DC Fluticasone Propionate (Flonase) 2 spray HS NS Last administered on 08/28/18at 21:16; Start 08/28/18 at 21:00; Stop 08/29/18 at 13:11; Status DC Lisinopril (Prinivil) 10 mg DAILY PO Last administered on 08/28/18at 15:22; Start 08/28/18 at 12:30; Stop 08/29/18 at 13:11; Status DC Metoclopramide HCl (Reglan) 5 mg TIDWMEALS PO ; Start 08/28/18 at 12:30; Stop 08/29/18 at 13:11; Status DC Temazepam (Restoril) 30 mg QHS PO Last administered on 08/28/18at 21:12; Start 08/28/18 at 21:00; Stop 08/29/18 at 13:11; Status DC Vitamin D (Vitamin D3) 1,000 unit DAILY PO Last administered on 08/28/18at 15: 20; Start 08/28/18 at 12:30; Stop 08/29/18 at 13:11; Status DC Non-Formulary Medication (Doxycycline Hyclate ) 1 cap BID PO ; Start 08/28/18 at 21:00; Status UNV Duloxetine HCl (Cymbalta) 120 mg DAILY PO Last administered on 08/28/18at 15:20 ; Start 08/28/18 at 12:30; Stop 08/29/18 at 13:11; Status DC Amylase/Lipase/ Protease (Zenpep 10,000) 1 cap DAILYWLUN PO ; Start 08/28/18 at 12:30; Stop 08/29/18 at 13:11; Status DC Amylase/Lipase/ Protease (Zenpep 10,000) 2 cap BIDWMEALS PO Last administered on 08/28/18at 16:37; Start 08/28/18 at 17:00; Stop 08/29/18 at 13:11; Status DC Meclizine HCl (Antivert) 12.5 mg PRN BID PRN PO DIZZINESS; Start 08/28/18 at 12:15; Stop 08/29/18 at 13:11; Status DC Psyllium Hydrophilic Mucilloid (Metamucil Fiber Packet) 1 pkt DAILY PO Last administered on 08/28/18at 15:21; Start 08/28/18 at 12:30; Stop 08/29/18 at 13 :11; Status DC Famotidine (Pepcid) 20 mg BID PO Last administered on 08/28/18at 21:12; Start 08/28/18 at 21:00; Stop 08/29/18 at 13:11; Status DC Atorvastatin Calcium (Lipitor) 10 mg QHS PO Last administered on 08/28/18at 21: 12; Start 08/28/18 at 21:00; Stop 08/29/18 at 13:11; Status DC Sennosides (Senna) 8.6 mg DAILY PO Last administered on 08/28/18at 15:20; Start 08/28/18 at 12:30; Stop 08/29/18 at 13:11; Status DC Tizanidine HCl (Zanaflex) 2 mg BID PO Last administered on 08/28/18at 15:20; Start 08/28/18 at 12:30; Stop 08/29/18 at 13:11; Status DC Enoxaparin Sodium (Lovenox 40mg Syringe) 40 mg Q24H SQ Last administered on at 15:24; Start 08/28/18 at 14:00; Stop 08/29/18 at 13:11; Status DC Insulin Human Lispro (HumaLOG) 0-5 UNITS TIDWMEALS SQ Last administered on at 17:48; Start 08/28/18 at 17:00; Stop 08/29/18 at 13:11; Status DC Dextrose (Dextrose 50%-Water Syringe) 12.5 gm PRN Q15MIN PRN IV SEE COMMENTS; Start 08/28/18 at 17:00; Stop 08/29/18 at 13:11; Status DC Insulin Glargine (Lantus) 15 units DAILY08 SQ ; Start 08/29/18 at 08:00; Stop 08/29/18 at 13:11; Status DC Morphine Sulfate (Morphine Sulfate) 4 mg PRN Q2HR PRN IV SEVERE PAIN Last administered on 08/29/18at 04:50; Start 08/29/18 at 04:45; Stop 08/29/18 at 13 :11; Status DC Oxycodone/ Acetaminophen (Percocet 10/325) 1 tab PRN Q6HRS PRN PO SEVERE PAIN PO Last administered on 08/29/18at 08:31; Start 08/29/18 at 04:45; Stop at 13:11; Status DC Active Scripts Active Reported Tizanidine Hcl 4 Mg Tablet 0.5 Tab PO BID Metamucil (Psyllium Husk) 0.52 Gm Capsule 0.52 Gm PO DAILY Eucerin Creme (Mineral Oil/White Petrolatum) 120 Gm Cream..g. 1 [place] TP PRN BID PRN Vitamin D-3 (Cholecalciferol (Vitamin D3)) 2,000 Unit Capsule 1,000 Unit PO DAILY Ultram (Tramadol Hcl) 50 Mg Tablet 50 Mg PO PRN BID PRN Senokot (Sennosides) 8.6 Mg Tablet 1 Tab PO DAILY Crestor (Rosuvastatin Calcium) 5 Mg Tablet 1 Tab PO QODAY Ranitidine Hcl 150 Mg Capsule 1 Cap PO BID Reglan (Metoclopramide Hcl) 10 Mg Tablet 0.5 Tab PO TIDWMEALS Meclizine Hcl 12.5 Mg Tablet 1 Tab PO PRN BID PRN Lisinopril 10 Mg Tablet 1 Tab PO DAILY Fluticasone Propionate Nasal [place] (Fluticasone Propionate) 16 Gm [place].susp 2 [place] NS HS Finasteride 5 Mg Tablet 1 Tab PO DAILY Cymbalta (Duloxetine Hcl) 60 Mg Capsule.dr 2 Cap PO HS Doxycycline Hyclate 100 Mg Capsule 1 Cap PO BID [place] Dr 12,000 Units Capsule (Lipase/Protease/Amylase) 1 Each Capsule.dr 1 Each PO DAILYWLUN Creon Dr 12,000 Units Capsule (Lipase/Protease/Amylase) 1 Each Capsule.dr 2 Each PO BIDWMEALS Aspirin 81 Mg Tab.chew 1 Tab PO DAILY Vitals/I & O Vital Sign - Last 24 Hours 08/28/18 08/28/18 08/28/18 08/28/18 15:00 15:18 15:22 17:45 Temp 98.7 98.7 Pulse 80 78 Resp 18 B/P (MAP) 118/72 (87) 126/76 Pulse Ox 94 O2 Delivery Room Air Room Air Room Air 08/28/18 08/28/18 08/28/18 08/28/18 19:00 20:25 21:13 23:00 Temp 98.4 98.4 98.4 98.4 Pulse 80 89 Resp 18 16 18 B/P (MAP) 134/75 (94) 144/82 (102) Pulse Ox 93 94 O2 Delivery Room Air Room Air Room Air Room Air 08/29/18 08/29/18 08/29/18 08/29/18 01:13 01:50 03:00 04:50 Temp 97.7 97.7 Pulse 93 Resp 18 16 18 18 B/P (MAP) 114/61 (78) Pulse Ox 95 O2 Delivery Room Air Room Air Room Air Room Air 08/29/18 08/29/18 08/29/18 08/29/18 05:20 07:00 08:15 08:31 Temp 98.3 98.3 Pulse 83 Resp 16 18 B/P (MAP) 127/68 (87) Pulse Ox 94 O2 Delivery Room Air Room Air Room Air Room Air 08/29/18 09:51 Pulse Ox 94 O2 Delivery Room Air Intake and Output 08/28/18 08/28/18 08/29/18 15:00 23:00 07:00 Intake Total 500 ml 2250 ml Balance 500 ml 2250 ml SANDI ELLIOTT III DO Aug 29, 2018 14:13
== END 2018-08-29 12:25 | disposition home or self-care (01) | DRG 206 ==
LOC: ER 23:43 → 4 NORTH 08-28 03:20
PROVIDERS: ADMIT Family Medicine; ATTEND Family Medicine
DX: S22.31XA Fracture of one rib, right side, initial encounter for closed fracture (principal); S92.002A Unspecified fracture of left calcaneus, initial encounter for closed fracture; I25.10 Atherosclerotic heart disease of native coronary artery without angina pectoris; E11.9 Type 2 diabetes mellitus without complications; G62.9 Polyneuropathy, unspecified; W01.0XXA Fall on same level from slipping, tripping and stumbling without subsequent striking against object, initial encounter; W10.9XXA Fall (on) (from) unspecified stairs and steps, initial encounter; E78.5 Hyperlipidemia, unspecified; I10 Essential (primary) hypertension; N40.0 Benign prostatic hyperplasia without lower urinary tract symptoms; Z87.891 Personal history of nicotine dependence; Y93.89 Activity, other specified; Y92.89 Other specified places as the place of occurrence of the external cause; Y99.8 Other external cause status
CPT/HCPCS: 29515; 36415; 70450; 72125; 73502; 73610; 73630; 73700; 74177; 80053; 82962; 83690; 85025; 85610; 90471; 90715; 93005; 96360; 96361; J1650; J1815; J2270; J2405; J3010; J7030; Q9967; 99285-25